=== PATIENT | male | born 1960 | race Caucasian/White ===

== ENCOUNTER 2016-10-04 16:28 | Observation (INO) | payer BC ==
[~2016-10-04] VITALS: Ht 193 cm; Wt 125.0 kg
[2016-10-04] VITALS (7 sets, daily range): BP systolic 106–138; BP diastolic 64–82; PULSE 65–80; RESP 14–18; TEMP 98.1; O2SAT 96–98
[~2016-10-04 16:28] MED LIST: CYCL5TAB PO
[2016-10-04] MEDS ORDERED: PREV15CA15 PO (16:46)
[2016-10-04] MEDS ORDERED: [UNRECOGNIZED DRUG - REMARK] (16:55)
[2016-10-04] MEDS ORDERED: SODIUM CHLORIDE 0.9% FLUSH 10 ML FLUSH IVF PRN (17:15)
[2016-10-04] MEDS ORDERED: ASPIRIN 81 MG CHEW TAB PO ONE (17:15)
[2016-10-04] MEDS ORDERED: NITROGLYCERIN 2% OINT 1 GM PACKET TOP ONE (17:15)
--- NOTE | 2016-10-04 17:30 | PD ---
HPI Chief Complaint: Cardiac Complaint Time Seen by Provider: 17:24 Travel History International Travel<30 days: No Contact w/Intl Traveler<30days: No Traveled to known affect area: No History of Present Illness HPI Patient comes in complaining of chest pain is pressure-like in nature left sternal border without radiation. Patient reports associated nausea, vomiting, shortness of breath, and diaphoresis. Patient states he had a heart attack at age 40. He states he is diet-controlled diabetes mellitus, diastolic hypertension, and has gastritis. Patient reports a history of a TIA. Patient states he was on an aspirin a day regiment but has no longer on this. Patient states he was also on Coumadin in the past after having heart attack that he is no longer taking. Patient states he was just wanted to go home, take Pepto- Bismol, and lay down. However, he the people with him what not let him as they were concerned that he might be having a heart attack. Patient denies anything making symptoms better or worse. Denies any fevers, cough, abdominal pain, back pain, loss or change in bowel or bladder, or numbness or tingling anywhere. PFSH Past Medical History Cancer: No Cardiovascular Problems: Yes ([place]) High Cholesterol: Yes Cerebrovascular Accident: Yes (TIA) Diabetes: Yes Patient Takes Glucophage: No Diminished Hearing: No Endocrine: Yes Gastrointestinal Disorders: Yes (GERD) Gout: Yes Genitourinary: No Hepatitis: No Hiatal Hernia: No Hypertension: Yes (RESOLVED WITH WT LOSS) Immune Disorder: No Musculoskeletal: Yes (NECK & BACK PAIN/ IMPINGEMENTS) Neurologic: Yes (NEUROPATHY LEGS, TINGLING ARMS/ HANDS, VERTIGO) Psychiatric: No Respiratory: No Immunizations Current: No Myocardial Infarction: Yes (2006; COUMADIN THERAPY 6 MO.) Thyroid Disease: No Influenza Vaccination: No Past Surgical History AICD: No Joint Replacement: No Pacemaker: No Other Surgery: Yes Social History Alcohol Use: Yes (2 BEERS A WEEK) Tobacco Use: No Substance Use: No Allergies-Medications (Allergen,Severity, Reaction): Coded Allergies: Metformin (Verified Allergy, Severe, RASH, 10/04/16) Uncoded Allergies: farxiga (Adverse Reaction, Severe, hypertention, 10/04/16) Reported Meds & Prescriptions Reported Meds & Active Scripts Active Flexeril (Cyclobenzaprine HCl) 5 Mg Tab 5 Mg PO HS Reported [htn med unknown] PRN Prevacid (Lansoprazole) 15 Mg Capdr 15 Mg PO HS Review of Systems Except as stated in HPI: all other systems reviewed are Neg Physical Exam Narrative GENERAL: Well-developed, overly nourished, in no acute distress, and non-ill appearing. SKIN: Focused skin assessment warm and dry. HEAD: Atraumatic. Normocephalic. EYES: Pupils equal and round. EOMI. No scleral icterus. No injection or drainage. ENT: No nasal bleeding or discharge. Mucous membranes pink and moist. NECK: Trachea midline. Supple. No nuclear rigidity. CARDIOVASCULAR: Regular rate and rhythm. No murmur appreciated. RESPIRATORY: No accessory muscle use. No respiratory distress. Clear to auscultation. Breath sounds equal bilaterally. GASTROINTESTINAL: Abdomen soft, non-tender, nondistended. Hepatic and splenic margins not palpable. No pulsatile mass. MUSCULOSKELETAL: No obvious deformities. No clubbing. No cyanosis. No edema. Full range of motion. NEUROLOGICAL: Awake and alert. No obvious cranial nerve deficits. Motor grossly within normal limits. Normal speech. PSYCHIATRIC: Appropriate mood and affect; insight and judgment normal. Data Data Last Documented VS Vital Signs Date Time Temp Pulse Resp B/P Pulse Ox O2 Delivery O2 Flow Rate FiO2 10/04/16 18:44 78 16 124/69 98 Nasal Cannula 2 10/04/16 16:30 98.1 Orders Electrocardiogram (10/04/16 17:11) Basic Metabolic Panel (Bmp) (10/04/16 17:11) Ckmb (Isoenzyme) Profile (10/04/16 17:11) Complete Blood Count With Diff (10/04/16 17:11) Magnesium (Mg) (10/04/16 17:11) Prothrombin Time / Inr (Pt) (10/04/16 17:11) Act Partial Throm Time (Ptt) (10/04/16 17:11) Troponin I (10/04/16 17:11) Chest, Single Ap (10/04/16 17:11) Ecg Monitoring (10/04/16 17:11) Bilateral Bp Monitoring (10/04/16 17:11) Iv Access Insert/Monitor (10/04/16 17:11) Oximetry (10/04/16 17:11) Oxygen Administration (10/04/16 17:11) Aspirin Chew (Aspirin Chew) (10/04/16 17:15) Nitroglycerin 2% Oint (Nitroglycerin 2% (10/04/16 17:15) Sodium Chloride 0.9% Flush (Ns Flush) (10/04/16 17:15) CKMB (10/04/16 17:30) CKMB% (10/04/16 17:30) Admit Order (Ed Use Only) (10/04/16 19:13) Labs Laboratory Tests Test 10/04/16 17:30 White Blood Count 8.5 TH/MM3 Red Blood Count 4.38 MIL/MM3 Hemoglobin 13.7 GM/DL Hematocrit 39.9 % Mean Corpuscular Volume 91.0 FL Mean Corpuscular Hemoglobin 31.2 PG Mean Corpuscular Hemoglobin 34.3 % Concent Red Cell Distribution Width 12.8 % Platelet Count 227 TH/MM3 Mean Platelet Volume 8.7 FL Neutrophils (%) (Auto) 67.4 % Lymphocytes (%) (Auto) 22.6 % Monocytes (%) (Auto) 7.4 % Eosinophils (%) (Auto) 2.0 % Basophils (%) (Auto) 0.6 % Neutrophils # (Auto) 5.8 TH/MM3 Lymphocytes # (Auto) 1.9 TH/MM3 Monocytes # (Auto) 0.6 TH/MM3 Eosinophils # (Auto) 0.2 TH/MM3 Basophils # (Auto) 0.1 TH/MM3 CBC Comment DIFF FINAL Differential Comment Prothrombin Time 9.9 SEC Prothromb Time International 0.9 RATIO Ratio Activated Partial 23.7 SEC Thromboplast Time Sodium Level 141 MEQ/L Potassium Level 3.9 MEQ/L Chloride Level 106 MEQ/L Carbon Dioxide Level 25.9 MEQ/L Anion Gap 9 MEQ/L Blood Urea Nitrogen 15 MG/DL Creatinine 1.15 MG/DL Estimat Glomerular Filtration 65 ML/MIN Rate Random Glucose 141 MG/DL Calcium Level 8.9 MG/DL Magnesium Level 2.1 MG/DL Total Creatine Kinase 156 U/L Creatine Kinase MB 1.1 NG/ML Troponin I LESS THAN 0.02 NG/ML MDM Medical Decision Making Medical Screen Exam Complete: Yes Emergency Medical Condition: Yes Interpretation(s) EKG reviewed by Dr. Reyes shows sinus rhythm with a ventricular rate is 77. No STEMI. Chest x-ray read by the radiologist shows: 1. Bibasilar atelectasis. 2. Mild cardiomegaly. Differential Diagnosis Acute coronary syndrome, pneumonia, pneumothorax, dehydration, electrolyte abnormality, other Narrative Course Patient is a exam. Laboratory studies were obtained and reviewed. Patient was given full dose aspirin and nitro paste was placed. Patient is reassessed reports relief of his chest pain. Discussed patient with Dr. Reyes, who is in agreement with plan of care and disposition. Discussed all findings and plan of care with patient, who is agreeable for admission. All questions were answered. Patient remained stable throughout ED course. Diagnosis Primary Impression: Chest pain, rule out acute myocardial infarction Admitting Information Admitting Physician Requests: Observation Condition: Stable Mehrdad Pierce October 04, 2016 17:30
[2016-10-04 17:58] LABS: AUTOMATED NEUTROPHIL # 5.8 TH/MM3 (1.8-7.7); BASOPHIL # 0.1 TH/MM3 (0-0.2); BASOPHIL % 0.6 % (0.0-2.0); EOSINOPHIL # 0.2 TH/MM3 (0-0.4); HEMATOCRIT 39.9 % (39.0-51.0); HEMO FLAGS DIFF FINAL; LYMPH % 22.6 % (9.0-44.0); LYMPHOCYTE # 1.9 TH/MM3 (1.0-4.8); MEAN CORPUSCULAR HEMOGLOBIN 31.2 PG (27.0-34.0); MEAN CORPUSCULAR HGB CONC 34.3 % (32.0-36.0); MONO % 7.4 % (0.0-8.0); NEUT % 67.4 % (16.0-70.0); PLATELET COUNT 227 TH/MM3 (150-450); RED BLOOD COUNT 4.38 MIL/MM3 (4.50-5.90); RED CELL DISTRIBUTION WIDTH 12.8 % (11.6-17.2); WHITE BLOOD COUNT 8.5 TH/MM3 (4.0-11.0)
--- NOTE | 2016-10-04 18:05 | RADRPT ---
EXAM DATE/TIME: 10/04/2016 17:25 [facility] COMPARISON: CHEST SINGLE AP, June 19, 2014, 7:54. INDICATIONS : Chest pain MEDICAL HISTORY : None. SURGICAL HISTORY : None. ENCOUNTER: Initial ACUITY: 1 day PAIN SCORE: 9/10 LOCATION: Bilateral chest FINDINGS: Bibasilar atelectasis is noted. The heart is mildly prominent. The pulmonary vascular pattern is no rmal. Hardware is noted within the lower cervical spine. CONCLUSION: 1. Bibasilar atelectasis. 2. Mild cardiomegaly. Prudencio Clay MD on October 04, 2016 at 17:59 Board Certified Radiologist. This report was verified electronically.
[2016-10-04 18:12] LABS: APTT (PATIENT) 23.7 SEC (24.3-30.1); INTERNATIONAL NORMALIZED RATIO 0.9 RATIO; PROTHROMBIN TIME - PATIENT 9.9 SEC (9.8-11.6)
[2016-10-04 18:40] LABS: CREATINE KINASE 156 U/L (39-308)
[2016-10-04 18:45] LABS: ANION GAP 9 MEQ/L (5-15); BICARBONATE 25.9 MEQ/L (21.0-32.0); BLOOD UREA NITROGEN 15 MG/DL (7-18); CHLORIDE 106 MEQ/L (98-107); GLOMERULAR FILTRATION RATE 65 ML/MIN (>89); MAGNESIUM 2.1 MG/DL (1.5-2.5); POTASSIUM 3.9 MEQ/L (3.5-5.1); SODIUM (NA) 141 MEQ/L (136-145)
[2016-10-04 18:53] LABS: CKMB 1.1 NG/ML (0.5-3.6)
[2016-10-04] MEDS ORDERED: SODIUM CHLORIDE 0.9% FLUSH 10 ML FLUSH IV FLUSH PRN (19:30)
[2016-10-04] MEDS ORDERED: PANTOPRAZOLE SOD 40 MG DELAYED RELEASE TAB PO ONE (21:00)
[2016-10-04] MEDS ORDERED: CYCLOBENZAPRINE HCL 10 MG TAB PO SCH (21:00)
[2016-10-04] MEDS ORDERED: ACETAMINOPHEN/HYDROcodone 325 MG/10 MG TAB PO PRN (21:00)
[2016-10-04 21:25] LABS: CREATINE KINASE 160 U/L (39-308)
[2016-10-04] MEDS: SODIUM CHLORIDE 0.9% FLUSH 10 ML FLUSH IV FLUSH SCH (21:38)
[2016-10-05 00:01] VITALS: BP 120/73; PULSE 70; RESP 18; TEMP 97.1; O2SAT 94
[2016-10-05 00:26] LABS: ALKALINE PHOSPHATASE 66 U/L (45-117); CREATINE KINASE 120 U/L (39-308); TOTAL BILIRUBIN ADULT 0.2 MG/DL (0.2-1.0)
[2016-10-05 00:39] LABS: CKMB 0.6 NG/ML (0.5-3.6)
[2016-10-05 00:46] LABS: ALT (GPT) 24 U/L (12-78); AST (GOT) 18 U/L (15-37); INDIRECT BILIRUBIN 0.1 MG/DL (0.0-0.8)
[2016-10-05 04:05] VITALS: BP 115/60; PULSE 59; RESP 18; TEMP 96.4; O2SAT 95
[2016-10-05 07:20] VITALS: O2SAT 95
[2016-10-05 07:46] VITALS: BP 126/79; PULSE 61; RESP 18; TEMP 98.8; O2SAT 91
[2016-10-05] MEDS: SODIUM CHLORIDE 0.9% FLUSH 10 ML FLUSH IV FLUSH SCH (09:00)
[2016-10-05] MEDS ORDERED: PANTOPRAZOLE SOD 40 MG DELAYED RELEASE TAB PO SCH (10:00)
[2016-10-05] MEDS ORDERED: cloNIDine HCL 0.1 MG TAB PO PRN (10:00)
--- NOTE | 2016-10-05 10:10 | HHI.HP ---
HPI Primary Care Physician Darrick Marshall DO Chief Complaint Chest pain and vomiting History of Present Illness This is a 56-year-old male that presents to the ED via private vehicle with his with a clean of emesis and chest pain that began yesterday. He was admitted to the chest pain center to further evaluate his symptoms. He states to me "I want to leave. Nothing is wrong with me. I feel better." He had breakfast on [place] o'clock yesterday morning. Then about 1:00 he felt nauseous had an episode of nonbloody emesis. Soon later developed a pressure in left side of his chest. He started feel little better and decided take a supplement is friend's place. While swimming he became short of breath but the chest pressure did not worsen. He sat down outside the pool and became nauseous again. He went to the bathroom and had no episodes of emesis and then a few minutes later another episode nonbloody emesis. He had a normal bowel movement and then the nausea improved and he had no further emesis. After the bowel movement the chest pressure also improved but still remained for told about 5 hours. When asked about his cardiac history the patient replied "when I was 40 I had a heart attack." However getting further information, patient had seen a primary care physician about time he is 40 and complaining of very symptoms his primary care physician told him that he thought he had a heart attack. He was set up for an outpatient stress test with her head lineman and states that he had a normal stress test. Patient is never had heart catheterization. Currently the patient feels fine and he wants to leave. He however has agreed to stay for CT and likely stress testing. Review of Systems General: Patient denies fevers, chills recent, and recent travel HEENT: Patient denies headache, sore throat, difficulty swallowing. Cardiovascular: Has the chest discomfort as mentioned above. Denies sensation of heart beating rapidly or irregularly. No syncope. He was diaphoretic. Respiratory: He was short of breath when he went swimming in the pleural which is unusual for him. Denies inspirational chest discomfort. Denies coughing wheezing or hemoptysis. GI: Patient was nauseous and had nonbloody emesis 3. He had a bowel movement that he states was normal. At having a bowel movement the pressure his chest improved and the emesis and nausea resolved. Musculoskeletal: He has chronic neck and back pain. Patient denies joint pain or edema. Denies calf pain or edema. Neurovascular: Patient denies numbness, tingling. He has chronic weakness in his lower extremities related to back issues. Denies headache. Endocrine: Denies polyuria and polydipsia. Hematologic: Denies easy bruising. Skin: Denies rash or itching. Past Family Social History Allergies: Coded Allergies: Metformin (Verified Allergy, Severe, RASH, 10/04/16) Uncoded Allergies: farxiga (Adverse Reaction, Severe, hypertention, 10/04/16) Past Medical History Hypertension but takes no medications routinely. Cervical spondylosis, cervical myelopathy. Hyperlipidemia but states his never been on medication. Diabetes but states he is diet controlled. GERD. Has no confirmed coronary artery disease. Past Surgical History Noncontributory Reported Medications Reported Meds & Active Scripts Active Flexeril (Cyclobenzaprine HCl) 5 Mg Tab 5 Mg PO HS Active Ordered Medications Current Medications Medications (Trade) Dose Ordered Sig/Deysi Route Start Time Stop Time Status Last Admin (NS Flush) 2 ml UNSCH PRN IV FLUSH 10/04/16 19:30 (NS Flush) 2 ml BID IV FLUSH 10/04/16 21:00 10/04/16 21:38 ([place] 10-325 Mg) 1 tab Q6H PRN PO 10/04/16 21:00 (Flexeril) 5 mg HS PO 10/04/16 21:00 10/04/16 21:38 (Catapres) 0.1 mg Q4H PRN PO 10/05/16 10:00 (Protonix) 40 mg DAILY PO 10/05/16 10:00 Family History Denies family history of CAD. Social History Patient is a lifetime nonsmoker. Denies alcohol or illicit drugs. 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 Physical Exam Vital Signs Vital Signs Date Time Temp Pulse Resp B/P Pulse Ox O2 Delivery O2 Flow Rate FiO2 10/05/16 07:46 98.8 61 18 126/79 91 10/05/16 07:20 95 21 10/05/16 04:05 96.4 59 18 115/60 95 10/05/16 00:01 97.1 70 18 120/73 94 10/04/16 22:48 80 10/04/16 21:06 78 18 106/64 97 10/04/16 20:00 98 Nasal Cannula 2.00 10/04/16 19:50 65 18 119/66 97 Nasal Cannula 2 10/04/16 18:44 78 16 124/69 98 Nasal Cannula 2 10/04/16 17:54 Nasal Cannula 2 10/04/16 17:54 97 Nasal Cannula 2 10/04/16 16:56 76 14 138/71 96 Room Air 10/04/16 16:30 98.1 84 17 136/82 98 Physical Exam GENERAL: This is a well-nourished, well-developed patient, in no apparent distress. Patient speaks in clear complete sentences. Patient is pleasant. His is also at the bedside. HEENT: Head is atraumatic and normocephalic. Neck is supple without lymphadenopathy and trachea is midline. No JVD or carotid bruits. CARDIOVASCULAR: Regular rate and rhythm without murmurs, gallops, or rubs. RESPIRATORY: Clear to auscultation. Breath sounds equal bilaterally. No wheezes , rales, or rhonchi. Chest wall is nontender. No use of accessory muscles. GASTROINTESTINAL: Abdomen is nontender, nondistended. Abdomen soft. No obvious pulsatile mass or bruit. No CVA tenderness. Strong femoral pulses bilaterally. Normal bowel sounds in all quadrants. MUSCULOSKELETAL: Patient is moving upper and lower extremities freely. No calf tenderness or edema, no Homans sign. Strong pulses in upper and lower extremities. NEUROLOGICAL: Patient is alert and oriented. Cranial nerves 2-12 are grossly intact. No focal deficits and speech is clear. SKIN: No rash and turgor is normal. Laboratory Laboratory Tests Test 10/04/16 10/04/16 10/04/16 17:30 20:35 23:40 White Blood Count 8.5 Red Blood Count 4.38 Hemoglobin 13.7 Hematocrit 39.9 Mean Corpuscular Volume 91.0 Mean Corpuscular Hemoglobin 31.2 Mean Corpuscular Hemoglobin 34.3 Concent Red Cell Distribution Width 12.8 Platelet Count 227 Mean Platelet Volume 8.7 Neutrophils (%) (Auto) 67.4 Lymphocytes (%) (Auto) 22.6 Monocytes (%) (Auto) 7.4 Eosinophils (%) (Auto) 2.0 Basophils (%) (Auto) 0.6 Neutrophils # (Auto) 5.8 Lymphocytes # (Auto) 1.9 Monocytes # (Auto) 0.6 Eosinophils # (Auto) 0.2 Basophils # (Auto) 0.1 CBC Comment DIFF FINAL Differential Comment Prothrombin Time 9.9 Prothromb Time International 0.9 Ratio Activated Partial 23.7 Thromboplast Time Sodium Level 141 Potassium Level 3.9 Chloride Level 106 Carbon Dioxide Level 25.9 Anion Gap 9 Blood Urea Nitrogen 15 Creatinine 1.15 Estimat Glomerular Filtration 65 Rate Random Glucose 141 Calcium Level 8.9 Magnesium Level 2.1 Total Creatine Kinase 156 160 120 Creatine Kinase MB 1.1 1.0 0.6 Troponin I LESS THAN 0.02 LESS THAN 0.02 LESS THAN 0.02 D-Dimer Quantitative (PE/DVT) 1.51 Total Bilirubin 0.2 Direct Bilirubin LESS THAN 0.1 Indirect Bilirubin 0.1 Aspartate Amino Transf 18 (AST/SGOT) Alanine Aminotransferase 24 (ALT/SGPT) Alkaline Phosphatase 66 Total Protein 4.2 Albumin 2.2 Result Diagram: 10/04/16 17310/04/16 173 Imaging Last 24 hours Impressions Chest X-Ray 10/04/16 1711 Signed Impressions: Service Date/Time: Tuesday, October 04, 2016 17:25 - CONCLUSION: 1. Bibasilar atelectasis. 2. Mild cardiomegaly. Prudencio Clay MD Course EKGs have sinus rhythm without significant ST segment depressions or elevations. Assessment and Plan Assessment and Plan * Chest pain: Patient has had serial cardiac enzymes and EKGs for ruling out purposes. He will be seen by Dr. Alonzo in the chest pain center. He has an elevated d-dimer and will get a CT pulmonary angiogram and if there is no PE then he will then proceed with a Lexiscan. He will be discharged if his Lexiscan is nonischemic. His symptoms may be GI related, he is asymptomatic at this time. He should resume his PPI. * Chronic back pain: Continue current medication. * Hypertension: Patient has been normotensive here. He should continue follow- up with his primary care physician. * Hyperlipidemia: Patient states she's never been prescribed medication for this. He should follow with his primary care physician regarding this as he is also diabetic and should be on nystatin prophylactically. * Diabetes: Patient states is diet-controlled. We will get a hemoglobin A1c. Patient is stable this time. He is agreeable to this plan. Jerrell Johnston October 05, 2016 10:10
[2016-10-05] MEDS ORDERED: IOHEXOL 350 MG/ML 10 ML VIAL (for RAD DIAG) IV ONE (10:11)
[2016-10-05 10:30] LABS: HEMOGLOBIN A1b 1.8 %; HEMOGLOBIN Ao 84.6 %; HEMOGLOBIN P3 3.8 %
--- NOTE | 2016-10-05 10:30 | RADRPT ---
EXAM DATE/TIME: 10/05/2016 09:57 [facility] COMPARISON: No previous studies available for comparison. INDICATIONS : Left sided chest pain yesterday. IV CONTRAST: 71 cc Omnipaque 350 (iohexol) IV RADIATION DOSE: 24.13 CTDIvol (mGy) MEDICAL HISTORY : Myocardial infarction. Hypertension. Cardiovascular disease SURGICAL HISTORY : Fusion, cervical. ENCOUNTER: Initial ACUITY: 1 day PAIN SCALE: 0/10 LOCATION: Left chest TECHNIQUE: Volumetric scanning of the chest was performed using a pulmonary embolism protocol MIP images were re constructed. Using automated exposure control and adjustment of the mA and/or kV according to patien t size, radiation dose was kept as low as reasonably achievable to obtain optimal diagnostic quality images. FINDINGS: PULMONARY ARTERIES: No filling defects are seen in the pulmonary arteries through the segmental level. LUNGS: There is no consolidation or pneumothorax . No concerning pulmonary nodule is visualized. Minimal bi basilar atelectasis. PLEURAE: There is no pleural thickening or pleural effusion. MEDIASTINUM: There is good visualization of the great vessels of the middle mediastinum. No evidence of mediastin al or hilar adenopathy/mass. MUSCULOSKELETAL: Within normal limits for patient age. MISCELLANEOUS: The visualized upper abdominal organs demonstrate hepatic steatosis. CONCLUSION: 1. No evidence for pulmonary embolism. 2. Minimal bibasilar atelectasis. 3. Hepatic steatosis. Harsha Vasquez MD on October 05, 2016 at 10:26 Board Certified Radiologist. This report was verified electronically.
[2016-10-05] MEDS ORDERED: REGADENOSON INJ 0.4 MG/5 ML SYR ONE (12:14)
[2016-10-05] MEDS ORDERED: DEXTROSE 50% IN WATER 50 ML VIAL(D50) IV PRN (12:15)
[2016-10-05] MEDS ORDERED: GLUCAGON 1 MG/ML VIAL IM/SQ PRN (12:15)
--- NOTE | 2016-10-05 13:37 | EKG ---
Date Performed: 10/04/2016 Time Performed: 16:57:39 PTAGE: 56 years EKG: Sinus rhythm LOW QRS VOLTAGE IN PRECORDIAL LEADS ANTEROSEPTAL MYOCARDIAL INFARCTION ABNORMAL ECG PREVIOUS TRACING : 06/13/2014 14.07 DOCTOR: Benedict Alonzo Interpretating Date/Time 10/05/2016 13:36:07
--- NOTE | 2016-10-05 13:39 | EKG ---
Date Performed: 10/04/2016 Time Performed: 20:35:50 PTAGE: 56 years EKG: Sinus rhythm LOW QRS VOLTAGE IN PRECORDIAL LEADS POSSIBLE ANTERIOR MYOCARDIAL INFARCTION BORDERLINE ECG PREVIOUS TRACING : 10/04/2016 16.57 DOCTOR: Benedict Alonzo Interpretating Date/Time 10/05/2016 13:39:16
--- NOTE | 2016-10-05 13:50 | RADRPT ---
EXAM DATE/TIME: 10/05/2016 10:44 [facility] COMPARISON: No previous studies available for comparison. INDICATIONS : Chest pain with vomiting. Angina. DOSE: 35.0 mCi Tc99m Myoview at stress. 11.0 mCi Tc99m Myoview at rest. 0.4 mg Lexiscan STRESS SYMPTOMS: Nausea, dyspnea, and chest pain. EJECTION FRACTION: 54% MEDICAL HISTORY : Hypertension. Myocardial infarction. Stroke. SURGICAL HISTORY : Discectomy, lumbar. ENCOUNTER: Initial ACUITY: 2 days PAIN SCALE: 0/10 LOCATION: Substernal chest TECHNIQUE: The patient underwent pharmacologic stress with infusion of prescribed dose. Continuous ECG tracing was monitored during stress. Gated SPECT imaging was performed after stress and conventional SPECT i maging was performed at rest. The examination was performed on a SPECT/CT scanner, both attenuation and non-corrected datasets were reviewed. FINDINGS: DISTRIBUTION: The maximum perfused segment at stress is in the lateral wall. PERFUSION STUDY: Small defect with minimal reversibility within the anterolateral wall. GATED STUDY: There is intact wall motion and thickening without hypokinetic or dyskinetic segments. CONCLUSION: 1. Small defect with minimal reversibility within the anterolateral wall could be small area of ische yue. 2. Normal ejection fraction. RISK CATEGORY: Low (<1% Annual Mortality Rate) Harsha Vasquez MD on October 05, 2016 at 13:45 Board Certified Radiologist. This report was verified electronically.
--- NOTE | 2016-10-05 13:51 | EKG ---
Date Performed: 10/04/2016 Time Performed: 23:29:26 PTAGE: 56 years EKG: Sinus rhythm LOW QRS VOLTAGE IN PRECORDIAL LEADS POSSIBLE ANTERIOR MYOCARDIAL INFARCTION INFERIOR MYOCARDIAL INFA RCTION ABNORMAL ECG PREVIOUS TRACING : 10/04/2016 20.35 DOCTOR: Benedict Alonzo Interpretating Date/Time 10/05/2016 13:49:44
--- NOTE | 2016-10-05 14:21 | TR ---
Date Performed: 10/05/2016 Time Performed: 12:50:59 DOCTOR: Benedict Alonzo DRUG LIST: CLINICAL HISTORY: REASON FOR TEST: REASON FOR ENDING: OBSERVATION: CONCLUSION: Lexiscan stress test was performed under standard four minute protocol. Radionuclide was injected one minute prior to ending the test. Developed nausea and abdominal cramping, blood pre ssure was slightly decreased. No electrocardiographic abnormalities were present to suggest ischemia. Recovery was quick and uneventful with resolution of symptoms, blood pressure remained slightly decr eased. Nuclear imaging and interpretation are pending. COMMENTS:
[2016-10-05] MEDS ORDERED: CYCL5TAB PO (14:22)
[2016-10-05 14:32] VITALS: BP 157/91; PULSE 64; RESP 18; TEMP 98.8; O2SAT 95
[2016-10-05] MEDS ORDERED: LISI-519 PO (15:35)
[2016-10-05] MEDS ORDERED: ASPI81CH CHEW (15:35)
[2016-10-05] MEDS ORDERED: PREV30CA11 PO (15:35)
--- NOTE | 2016-10-05 15:38 | HHI.DCPOC ---
Discharge Care Plan Diagnosis: (1) Chest pain (2) Hypertension (3) DM (diabetes mellitus) (4) GERD (gastroesophageal reflux disease) (5) Abnormal nuclear stress test Goals to Promote Your Health NEED TO BE REFERRED TO BACTERIOLOGIST DAIRY TO HAVE CARDIAC CATHETERIZATION WITHIN NEXT 10 DAYS. RETURN TO ED FOR INTERVAL PROBLEMS. ALSO DISCUSS WITH YOUR PHYSICIAN THE NEED FOR TAKING CHOLESTEROL MEDICATION. * To prevent worsening of your condition and complications * To maintain your health at the optimal level Directions to Meet Your Goals Take your medications as prescribed Follow your dietary instruction Follow activity as directed Keep your appointments as scheduled Take your immunizations and boosters as scheduled If your symptoms worsen call your PCP, if no PCP go to Urgent Care Center or Emergency Room Smoking is Dangerous to Your Health. Avoid second hand smoke Call the 24-hour hour crisis hotline for domestic abuse at Jerrell Johnston October 05, 2016 15:38
[2016-10-05 15:59] VITALS: BP 124/85; PULSE 66; RESP 18; TEMP 98.9; O2SAT 94
[2016-10-05] MEDS ORDERED: INSULIN ASPART SUPPLEMENTAL SCALE SQ SCH (16:00)
[2016-10-05 16:30] LABS: BLOOD, URINE NEG (NEG); COMMENT (UR) CULT NOT INDICATED; CULTURE IF INDICATED CULT NOT INDICATED; GLUCOSE,URINE TRACE mg/dL (NEG); KETONE, URINE NEG (NEG); MUCUS URINE FEW /lpf (OCC); NITRITE,URINE NEG (NEG); SQUAMOUS EPITHELIAL CELL URINE <1 /hpf (0-5); URINE COLOR YELLOW (YELLW/STRAW)
== END 2016-10-05 17:35 | disposition home or self-care (01) ==
LOC: NEPE 16:28 → NEDA 19:15 → NEPFCDU 21:17
PROVIDERS: ADMIT Family Medicine; ATTEND Family Medicine
DX: R07.89 Other chest pain (principal); I10 Essential (primary) hypertension; E78.00 Pure hypercholesterolemia, unspecified; E11.40 Type 2 diabetes mellitus with diabetic neuropathy, unspecified; K21.9 Gastro-esophageal reflux disease without esophagitis; M10.9 Gout, unspecified; E78.5 Hyperlipidemia, unspecified; I25.2 Old myocardial infarction; G89.29 Other chronic pain; M54.9 Dorsalgia, unspecified; M47.12 Other spondylosis with myelopathy, cervical region; Z86.73 Personal history of transient ischemic attack (TIA), and cerebral infarction without residual deficits; Z79.01 Long term (current) use of anticoagulants; Z88.8 Allergy status to other drugs, medicaments and biological substances
CPT/HCPCS: 71010; 71275; 78452; 80048; 80076; 81001; 82550; 82552; 82948; 83036; 83735; 84484; 85025; 85379; 85610; 85730; 93005; 93017; 99285; A9502; G0378; J2785; Q9967

== ENCOUNTER 2017-06-22 12:37 | Emergency (ER) | payer BC ==
[~2017-06-22] VITALS: Ht 193 cm; Wt 126.8 kg
[~2017-06-22 12:37] MED LIST changes: +ASPI-516 CHEW; +LISI-519 PO; +PREV30CA36 PO
[2017-06-22 12:40] VITALS: BP 151/89; PULSE 71; RESP 20; TEMP 98.8; O2SAT 98
[2017-06-22] MEDS ORDERED: ACETAMINOPHEN 500 MG CPLT PO ONE (13:00)
--- NOTE | 2017-06-22 13:35 | PD ---
HPI Chief Complaint: Fall Time Seen by Provider: 12:53 Travel History International Travel<30 days: No Contact w/Intl Traveler<30days: No Traveled to known affect area: No History of Present Illness HPI This is a 57-year-old male who presents to the emergency department having had a fall. The patient reports that his legs gave out. He says this happens to him from time to time ever since he has had some spinal cord problems. He hit his head and lost consciousness for several minutes, waking up with a headache in the front of his head, constant, moderate severity with no associated vomiting, numbness or weakness. He is not on any blood thinners. His neck is also hurting him. He wanted to just go home and ice his head but his convinced him to come to the emergency department. PFSH Past Medical History Heart Rhythm Problems: No Cancer: No Cardiac Catheterization: No Cardiovascular Problems: Yes High Cholesterol: Yes Congestive Heart Failure: No Cerebrovascular Accident: Yes (TIA) Diabetes: Yes Patient Takes Glucophage: No Diminished Hearing: No Endocrine: Yes Gastrointestinal Disorders: Yes (GERD) Gout: Yes Genitourinary: No Hepatitis: No Hiatal Hernia: No Heparin Induced Thrombocytopen: No Hypertension: Yes (RESOLVED WITH WT LOSS) Immune Disorder: No Medical other: No Musculoskeletal: Yes (NECK & BACK PAIN/ IMPINGEMENTS) Neurologic: Yes (NEUROPATHY LEGS, TINGLING ARMS/ HANDS, VERTIGO) Psychiatric: No Respiratory: No Immunizations Current: No Myocardial Infarction: Yes (2006;) Thyroid Disease: No Past Surgical History AICD: No Coronary Artery Bypass Graft: No Joint Replacement: No Pacemaker: No Other Surgery: Yes Social History Alcohol Use: Yes (2 BEERS A WEEK) Tobacco Use: No Substance Use: No Allergies-Medications (Allergen,Severity, Reaction): Coded Allergies: metformin (Unverified Allergy, Severe, RASH, 01/19/17) Uncoded Allergies: farxiga (Adverse Reaction, Severe, hypertention, 10/04/16) Reported Meds & Prescriptions Reported Meds & Active Scripts Active Flexeril (Cyclobenzaprine HCl) 5 Mg Tab 5 Mg PO HS Aspirin 81 Mg Chew 81 Mg CHEW DAILY Prevacid (Lansoprazole) 30 Mg Capdr 30 Mg PO DAILY Lisinopril 5 Mg Tab 5 Mg PO DAILY Review of Systems Except as stated in HPI: all other systems reviewed are Neg Physical Exam Narrative GENERAL:Well appearing, no acute distress SKIN: Focused skin assessment warm and dry. HEAD: Large right frontal hematoma. EYES: Pupils equal and round. No injection or drainage. ENT: Moist mucous membranes NECK: Tender to palpation along the midline cervical spine. CARDIOVASCULAR: Regular rate and rhythm. No murmur appreciated. RESPIRATORY: Clear to auscultation. Breath sounds equal bilaterally. GASTROINTESTINAL: Abdomen soft, non-tender, nondistended. MUSCULOSKELETAL: No obvious deformities. NEUROLOGICAL: Awake and alert. No obvious cranial nerve deficits. Moving all extremities. PSYCHIATRIC: Appropriate mood and affect; insight and judgment normal. Data Data Last Documented VS Vital Signs Date Time Temp Pulse Resp B/P (MAP) Pulse Ox O2 Delivery O2 Flow Rate FiO2 06/22/17 12:40 98.8 71 20 151/89 (109) 98 Room Air Orders Orders Ct Brain W/O Iv Contrast(Rout) (06/22/17 ) Ct Cerv Spine W/O Contrast (06/22/17 ) Acetaminophen (Tylenol) (06/22/17 13:00) MDM Medical Decision Making Medical Screen Exam Complete: Yes Emergency Medical Condition: Yes Differential Diagnosis Intracranial hemorrhage, cervical spine fracture, cervicals strain, concussion Narrative Course This is a 57-year-old male who presents to the emergency department having had a fall hitting his head. CT of the head and cervical spine are reassuring. Patient has had falls in the past and is followed by Dr. Dumont, Dr. Bates and Dr. Dunn. I think is appropriate for outpatient follow-up. Patient was discharged home. Diagnosis Primary Impression: Concussion Qualified Codes: S06.0X1A - Concussion with loss of consciousness of 30 minutes or less, initial encounter Patient Instructions: General Instructions Additional Instructions: Return to the emergency department if you develop trouble walking or talking, vomiting, numbness, weakness, or severe headache. A concussion does not usually need treatment. Most concussions get better on their own, but it can take time. Some peoples symptoms go away within minutes to hours. Other people have symptoms for weeks to months. When symptoms last a long time, doctors call it ``postconcussion syndrome. To help your brain heal after a concussion, you can: Rest your body - Make sure to get plenty of sleep. When you are awake, you should avoid heavy exercise or too much physical activity. Rest your brain - Avoid doing activities that need concentration or a lot of attention. Not drink alcohol for 2 days after the injury Take a pain-relieving medicine, if you have a headache Follow up with your primary care physician in one week if you are not back to your normal self. Med/Other Pt SpecificInfo: No Change to Meds Disposition: 01 DISCHARGE HOME Condition: Stable Juanita Corona MD Jun 22, 2017 13:35
--- NOTE | 2017-06-22 13:40 | RADRPT ---
EXAM DATE/TIME: 06/22/2017 13:20 [facility] COMPARISON: CT BRAIN W/O CONTRAST, June 13, 2014, 12:49. INDICATIONS : Trauma, fall. Hit forehead. RADIATION DOSE: 40.51 CTDIvol (mGy) MEDICAL HISTORY : Cerebrovascular disease. Cardiovascular disease Hypertension.Diabetes. SURGICAL HISTORY : None. ENCOUNTER: Initial ACUITY: 1 day PAIN SCALE: 5/10 LOCATION: cranial TECHNIQUE: Multiple contiguous axial images were obtained of the head. Using automated exposure control and adj ustment of the mA and/or kV according to patient size, radiation dose was kept as low as reasonably a chievable to obtain optimal diagnostic quality images. DICOM format image data is available electro nically for review and comparison. FINDINGS: CEREBRUM: The ventricles are normal for age. No evidence of midline shift, mass lesion, hemorrhage or acute in farction. No extra-axial fluid collections are seen. POSTERIOR FOSSA: The cerebellum and brainstem are intact. The 4th ventricle is midline. The cerebellopontine angle i s unremarkable. EXTRACRANIAL: The visualized portion of the orbits is intact. There is mild soft tissue swelling over the right fro ntal bone. SKULL: The calvaria is intact. No evidence of skull fracture. CONCLUSION: Negative trauma CT with no evidence of hemorrhage or mass effect. There is mild soft tissue swelling over the right frontal bone with no evidence of fracture. Quinn Lemus MD on June 22, 2017 at 13:36 Board Certified Radiologist. This report was verified electronically.
--- NOTE | 2017-06-22 13:52 | RADRPT ---
EXAM DATE/TIME: 06/22/2017 13:20 [facility] COMPARISON: CT CERVICAL SPINE W/O CONTRAST, August 11, 2014, 18:25. INDICATIONS : Trauma, fell backwards. RADIATION DOSE: 24.34 CTDIvol (mGy) MEDICAL HISTORY : Cerebrovascular disease. Cardiovascular disease Hypertension.Diabetes. SURGICAL HISTORY : None. ENCOUNTER: Initial ACUITY: 1 day PAIN SCALE: 0/10 LOCATION: cranial TECHNIQUE: Volumetric scanning of the cervical spine was performed. Multiplanar reconstructions i n the sagittal, coronal and oblique axial planes were performed. Using automated exposure control a nd adjustment of the mA and/or kV according to patient size, radiation dose was kept as low as reason ably achievable to obtain optimal diagnostic quality images. DICOM format image data is available e lectronically for review and comparison. FINDINGS: The sagittal reconstructions demonstrate normal alignment and normal prevertebral soft tissues. The d ens is intact and there is a normal atlantoaxial relationship. The patient is again noted to be statu s post anterior fusion at the C5-C7 level with intact screw plate fixation device. There is bone mariano t material in the interspaces no cysts solid. The axial images demonstrate that the vertebral bodies and posterior elements are intact. The soft ti ssues are within normal limits. There is no evidence of acute fracture or malalignment. CONCLUSION: Negative trauma CT. Quinn Lemus MD on June 22, 2017 at 13:48 Board Certified Radiologist. This report was verified electronically.
== END 2017-06-22 14:20 | disposition home or self-care (01) ==
LOC: NEPD 12:37
DX: S06.0X1A Concussion with loss of consciousness of 30 minutes or less, initial encounter (principal); R55 Syncope and collapse; I10 Essential (primary) hypertension; E78.00 Pure hypercholesterolemia, unspecified; I25.10 Atherosclerotic heart disease of native coronary artery without angina pectoris; I67.9 Cerebrovascular disease, unspecified; I25.2 Old myocardial infarction; E11.9 Type 2 diabetes mellitus without complications; K21.9 Gastro-esophageal reflux disease without esophagitis; M10.9 Gout, unspecified; W19.XXXA Unspecified fall, initial encounter; Z86.73 Personal history of transient ischemic attack (TIA), and cerebral infarction without residual deficits; Z88.8 Allergy status to other drugs, medicaments and biological substances; Z79.82 Long term (current) use of aspirin; Z79.899 Other long term (current) drug therapy
CPT/HCPCS: 70450; 72125; 99285